=== PATIENT | female | born 1945 | race Caucasian/White ===

== ENCOUNTER → 2017-03-16 | Outpatient (CLI) | payer MEDICARE, OTHER ==
--- NOTE | 2017-03-17 10:45 | RSPPFT ---
DATE OF PROCEDURE: 03/16/17 COMMENTS: VOLUMES DYNAMIC: FVC and FEV1 normal. STATIC: FRC, RV and TLC normal. FLOWS: FEV1% mildly reduced; FEF 25-75 mildly reduced. DIFFUSION: Normal. FLOW VOLUME LOOP: Normal configuration. IMPRESSION: Very mild terminal airflow obstruction with no loss of lung volume. Diffusion is normal. There is minimal improvement post-bronchodilator.
== END ==
LOC: HRSP 09:59
PROVIDERS: ATTEND Internal Medicine
DX: R06.02 Shortness of breath (principal)
CPT/HCPCS: 94618; 95012